=== PATIENT | female | born 1995 | race Caucasian/White ===

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

== ENCOUNTER → 2017-08-31 23:15 | Observation (INO) ==
[2017-08-31 22:38] LABS: Bilirubin,Urine Negative (Negative); Blood,Urine Negative (Negative); Clarity,Urine Clear (Clear); Color,Urine Yellow (Yellow); Glucose,Urine (UA) Normal (Normal); Ketones,Urine Negative (Negative); Leukocyte Esterase,Urine Small (Negative); Nitrite,Urine Negative (Negative); PH,Urine 6.5 pH Units (5.0-8.0); Protein,Urine Trace mg/dL (Neg-Trace); Urobilinogen,Urine Normal (Normal)
[2017-08-31 22:41] LABS: Bacteria,Urine Few per hpf (None-Few); Hyaline Casts,Urine None Seen per lpf (None-Few); RBC,Urine 0-3 per hpf (0-3); Squamous Epithelial Cell,Urine Many per lpf (None-Few)
[2017-08-31 22:51] LABS: Amphetamine Screen,Urine Negative ng/mL (Cutoff=1000); Barbiturate Screen,Urine Negative ng/mL (Cutoff=200); Benzodiazepines Screen,Urine Negative ng/mL (Cutoff=200); Cannabinoid Screen,Urine Positive ng/mL (Cutoff = 50); Cocaine Screen,Urine Negative ng/mL (Cutoff= 300); Opiate Screen,Urine Negative ng/mL (Cutoff=300); Phencyclidine Screen,Urine Negative ng/mL (Cutoff=25)
--- NOTE | 2017-08-31 23:06 | OB/GYN Progress Note ---
Date of Encounter: 08/31/17 Time of Encounter: 23:03 - Assessment and Plan (1) 24 weeks gestation of Current Visit: Yes Status: Acute (2) Cramping affecting , antepartum Current Visit: Yes Status: Acute Cervix closed thick and high, UA negative. Speculum exam with thick white discharge, fern negative Patient discharged home with labor and when to return to triage precautions. Patient verbalizes understanding Subjective - Subjective Interval history: 24+6 weeks gestation presents to triage with complaints of abdominal cramping and pelvic pressure since yesterday. Patient states she is been having pelvic cramping which feels like occasional contractions since 3 PM yesterday, has intensified in intensity and strength today with increasing pelvic pressure. Reports good movement, denies vaginal bleeding. Patient does states she is leaking a little bit of clear discharge has care of [facility] with Dr. Rivera Antepartum ROS: loss of fluid, movement normal, contractions, no vaginal bleeding Objective - Exam FHR: auscultation normal FHR comments: Appropriate for gestational age Baseline 135 Abdomen: Present: normal appearance, soft, gravid Cervical dilation: Closed/thick/high Comments: Speculum exam shows normal thick white discharge of /negative fern - Labs Labs: Abnormal lab results Ur Specific [place] 1.030 (1.010-1.025) H 08/31/17 22:27 Ur Leukocyte Esterase Small (Negative) H 08/31/17 22:27 Urine Microscopic WBC 5-15 per hpf (0-3) H 08/31/17 22:27 Ur Squamous Epith Cells Many per lpf (None-Few) H 08/31/17 22:27 Ur Culture Indicated? NO. (NO) A 08/31/17 22:27 U Marijuana (THC) Screen Positive ng/mL (Cutoff = 50) H 08/31/17 22:27
== END | disposition home or self-care (01) ==
LOC: 1NENULAB
PROVIDERS: ADMIT Advanced Practice Midwife; ATTEND Advanced Practice Midwife

== ENCOUNTER → 2017-11-14 19:05 | Observation (INO) ==
--- NOTE | 2017-11-14 18:35 | OB/GYN Progress Note ---
Date of Encounter: 11/14/17 Time of Encounter: 18:33 - Assessment and Plan (1) 35 weeks gestation of Current Visit: Yes Status: Acute Nitrazine & Fern Negative. No pooling noted. Discharge home with return precautions. (2) Obesity affecting in third trimester Current Visit: Yes Status: Acute (3) Amniotic fluid leaking Current Visit: Yes Status: Acute Subjective - Subjective Principal diagnosis: ROM Interval history: 22 y/o presenting at 35w5d with concern for ROM. She states she had a gush of fluid around 11am and has had a small amount of leaking since. Denies contractions or VB. Reports good FM. Antepartum ROS: new complaints, loss of fluid, movement normal, no vaginal bleeding, no contractions Objective - Exam FHR: category 1 FHR comments: NST reactive, FHR baseline 135bpm Auscultation: bilateral: normal Abdomen: Present: normal appearance, soft, gravid. Absent: tenderness Cervical dilation: 0 Cervix effacement: thick station: -2
[2017-11-14 18:51] LABS: Bilirubin,Urine Negative (Negative); Blood,Urine Negative (Negative); Clarity,Urine Cloudy (Clear); Color,Urine Yellow (Yellow); Glucose,Urine (UA) Normal (Normal); Ketones,Urine Negative (Negative); Leukocyte Esterase,Urine Small (Negative); Nitrite,Urine Negative (Negative); PH,Urine 6.5 pH Units (5.0-8.0); Protein,Urine Negative (Neg-Trace); Specific Gravity,Urine 1.025 (1.010-1.025); Urobilinogen,Urine Normal (Normal)
[2017-11-14 18:55] LABS: Bacteria,Urine Few per hpf (None-Few); Hyaline Casts,Urine None Seen per lpf (None-Few); Squamous Epithelial Cell,Urine Many per lpf (None-Few)
[2017-11-14 18:56] LABS: Amphetamine Screen,Urine Negative ng/mL (Cutoff=1000); Barbiturate Screen,Urine Negative ng/mL (Cutoff=200); Benzodiazepines Screen,Urine Negative ng/mL (Cutoff=200); Cannabinoid Screen,Urine Negative ng/mL (Cutoff = 50); Cocaine Screen,Urine Negative ng/mL (Cutoff= 300); Opiate Screen,Urine Negative ng/mL (Cutoff=300); Phencyclidine Screen,Urine Negative ng/mL (Cutoff=25)
[2017-11-14 19:38] LABS: Calcium Oxalate Crystals,Urine Present
== END | disposition home or self-care (01) ==
LOC: 1NENULAB
PROVIDERS: ADMIT Registered Nurse; ATTEND Registered Nurse